=== PATIENT | male | born 1990 | race Caucasian/White ===

== ENCOUNTER 2020-11-04 09:36 | Day surgery (SDC) | payer OTHER ==
[~2020-11-04 09:36] MED LIST: DEXAMETHASONE 4 MG/ML VIAL ONE; KETOROLAC 30 MG/ML VIAL ONE; LIDOCAINE-MPF 2% 5 ML VIAL ONE; ONDANSETRON 4 MG/2 ML VIAL ONE; PROPOFOL 200 MG/20 ML VIAL IVP ONE; ROCURONIUM 50 MG/5 ML VIAL ONE; SEVOFLURANE 250 ML LIQUID INH ONE
[2020-11-04] MEDS ORDERED: LACTATED RINGERS 1,000 ML IV ONE ×2 (09:40→17:09)
[2020-11-04] MEDS ORDERED: cefTRIAXone 2 GM VIAL ONE (09:45)
[2020-11-04] MEDS ORDERED: ONDANSETRON 4 MG/2 ML VIAL IVP PRN ×2 (09:54→17:18)
[2020-11-04] MEDS ORDERED: METOCLOPRAMIDE 10 MG/2 ML VIAL IVP PRN (09:54)
[2020-11-04] MEDS ORDERED: NALOXONE 0.4 MG/ML VIAL IVP PRN (09:54)
[2020-11-04] MEDS ORDERED: fentaNYL 100 MCG/2 ML VIAL IVP PRN (09:54)
[2020-11-04] MEDS ORDERED: ePHEDrine 50 MG/ML VIAL IVP PRN (09:54)
[2020-11-04] MEDS ORDERED: MORPHINE 2 MG/ML CARPUJECT IVP PRN (09:54)
[2020-11-04] MEDS ORDERED: HYDROmorphone 0.5 MG/0.5 ML SYRINGE IVP PRN (09:54)
[2020-11-04] MEDS ORDERED: ATROPINE ABBOJECT 1 MG/10 ML SYRINGE IVP PRN (09:54)
[2020-11-04] MEDS ORDERED: LACTATED RINGERS 1,000 ML IV SCH (10:00)
--- NOTE | 2020-11-04 10:03 | ANESTHESIA ---
Pre-Anesthesia VS, & Labs - Diagnosis R labrum tear - Procedure R shoulder arthroscopy Vital Signs: Temp Pulse Resp BP Pulse Ox 38.0 C H 91 16 140/89 H 100 11/04/20 09:45 11/04/20 09:45 11/04/20 09:45 11/04/20 09:45 11/04/20 09:45 Height: 6 ft 4 in Weight (kg): 113.4 kg Body Mass Index: 30.4 BMI Classification: Obese - NPO >8 hours, Other Last Fluid Intake: 4oz black coffee 0630 Last Food Intake: >8hrs Home Medications and Allergies Home Medications: Ambulatory Orders No Known Home Medications 11/04/20 Active Medications Atropine Sulfate (Atropine Abboject 1 Mg/10 Ml Syringe) 0.5 mg IVP Q5M PRN PRN Reason: Bradycardia Stop: 11/05/20 09:54 Ephedrine Sulfate (Ephedrine 50 Mg/Ml Vial) 10 mg IVP Q5M PRN PRN Reason: HYPOTENSION Stop: 11/05/20 09:54 Fentanyl (Fentanyl 100 Mcg/2 Ml Vial) 25 - 50 mcg IVP Q5M PRN PRN Reason: BREAKTHROUGH PAIN (2nd Choice) Stop: 11/05/20 09:54 Hydromorphone HCl (Hydromorphone 0.5 Mg/0.5 Ml Syringe) 0.2 - 0.6 mg IVP Q5M PRN PRN Reason: PAIN (First Choice) Stop: 11/05/20 09:54 Lactated Ringer's (Lr) 1,000 mls @ 100 mls/hr IV .Q10H ALYCIA Stop: 11/04/20 19:59 Metoclopramide HCl (Metoclopramide 10 Mg/2 Ml Vial) 10 mg IVP Q6HR PRN PRN Reason: N/V not relieved by Zofran Morphine Sulfate (Morphine 2 Mg/Ml Carpuject) 2 - 4 mg IVP Q5M PRN PRN Reason: PAIN (3rd Choice) Stop: 11/05/20 09:54 Naloxone HCl (Naloxone 0.4 Mg/Ml Vial) 0.1 mg IVP Q2M PRN PRN Reason: RESP RATE <8 Stop: 11/05/20 09:54 Ondansetron HCl (Ondansetron 4 Mg/2 Ml Vial) 4 mg IVP ONCE PRN PRN Reason: N/V (First Choice) Stop: 11/05/20 09:54 Acetaminophen [Tylenol] 650 mg PO Q6H PRN 10/27/20 Allergies/Adverse Reactions: Allergies Allergy/AdvReac Type Severity Reaction Status Date / Time No Known Drug Allergies Allergy Verified 11/04/20 10:04 Anes History & Medical History - Anesthetic History Family history of Anesthesia Complications: Denies Family history of Malignant Hyperthermia: Denies - Medical History Cardiovascular: reports: None Pulmonary: reports: None Gastrointestinal: reports: None Urinary: reports: None Musculoskeletal: reports: Other Endocrine/Autoimmune: reports: None Skin: reports: None Smoking Status: Never smoker Psychosocial: reports: No issues indicated History of Cancer?: No Exam Dental: WNL Mouth Openin Fingerbreadth Neck Mobility: Normal Mallampati classification: I Respiratory: Lungs clear Cardiovascular: Regular rate Abdomen: Normal bowel sounds Extremities: No clubbing Neurological: Normal gait Mental/Cognitive Status: Alert/Oriented X3 Cognitive Status: Within normal limits Plan Anesthesia Type: General, Interscalene Block, Other (R superficial cervical block) Regional Block: Per Surgeon's request for Post Op pain control Consent for Procedure(s) Verified and Reviewed: Yes Code Status: Attempt Resuscitation ASA classification: 1-Healthy patient Is this case an emergency?: No
[2020-11-04] MEDS ORDERED: ROPIVACAINE 0.5% PF 20 ML AMPULE ONE (10:58)
[2020-11-04] MEDS ORDERED: DEXAMETHASONE 4 MG/ML VIAL ONE ×2 (11:01→11:03)
[2020-11-04] MEDS ORDERED: EPINEPHrine 1 MG/ML AMP ONE ×2 (11:02→11:33)
[2020-11-04] MEDS ORDERED: BUPIVACAINE 0.25% PF 30 ML VIAL ONE (11:33)
[2020-11-04] MEDS ORDERED: fentaNYL 100 MCG/2 ML VIAL ONE ×2 (11:35)
[2020-11-04] MEDS ORDERED: MIDAZOLAM 2 MG/2 ML VIAL ONE (11:35)
[2020-11-04] MEDS ORDERED: EPINEPHrine 1 MG/ML AMP IR ONE (12:41)
[2020-11-04] MEDS ORDERED: BUPIVACAINE 0.25% PF 30 ML VIAL SUBQ ONE (12:42)
[2020-11-04] MEDS ORDERED: SEVOFLURANE 250 ML LIQUID INH ONE (16:47)
[2020-11-04] MEDS ORDERED: oxyCODONE 5 MG TABLET PO PRN (17:18)
--- NOTE | 2020-11-04 17:33 | OPERATIVE REPORT ---
Operative Report - Other Other Information/Narrative: Date of Surgery: 04 November 2020 Pre-Op Diagnosis: Shoulder instability with labral tear, humeral avulsion of the glenohumeral ligament, and Hill-Sachs lesion Procedure: Right shoulder arthroscopy with anterior labral repair. Open repair of the right shoulder humeral avulsion of the glenohumeral ligament. Postop Diagnosis: Same Primary Surgeon: Zhao Li Secondary Surgeon: None Complications: None EBL: 50 mL IMPLANTS: Arthrex knotless suture tack x4 for the Bankart repair Arthrex knotless corkscrew x1 for the HAGL repair Arthrex swivelock x1 for repair of the inferior subscap POSTOPERATIVE PLAN: 0-2 weeks-Sling at all times. Pendulum exercises 5 times per day. 2-6 weeks-Passive range of motion with the following limits: FF to 120, ER to neutral, abduction to 90 6-12 weeks-Active range of motion in all planes without limitation. Isometric rotator cuff strengthening is allowed 12-16 weeks-Gradually increase strengthening 16 weeks and beyond-Introduce dynamic activities EXAMINATION UNDER ANESTHESIA: ROM: Full Anterior load and shift: Unstable with click Posterior load and shift: Stable Inferior sulcus: Stable ARTHROSCOPIC FINDINGS: Rotator interval: Generally injected and inflamed from the injury Biceps tendon & SLAP: Normal Subscapularis: Normal Rotator Cuff: Normal HAGL: Anterior and inferior joint capsule was avulsed from the humerus Labrum: Anterior labrum was completely torn and medialized down the neck Glenoid Cartilage: Glad lesion was seen along the anterior Bankart region, cartilage was otherwise normal Humeral Head Cartilage: Hill-Sachs lesion was seen but otherwise humeral head was normal INDICATION FOR SURGERY: 30-year-old male who dislocated his shoulder while snowboarding 1 month ago. He started physical therapy and got an MRI. The MRI showed humeral avulsion of the glenohumeral ligaments as well as a labral tear and medialization of the capsule on the glenoid neck. He was indicated for surgery to restore his anatomy and stability. The risks, benefits, and alternatives were discussed. Risks included pain, bleeding, infection, damage to nearby structures, lack of symptom relief, implant complications, stiffness, need for further surgeries, DVT, PE, stroke, and even . He signed a writ ten consent form. PROCEDURE IN DETAIL: The patient was met in the preoperative holding on the day of the procedure. Operative extremity was signed. Consent was verified. He desired to proceed. Regional anesthesia was obtained in the preoperative area. They were brought to the operating room and surrendered to anesthesia. Once general anesthesia was obtained they were placed in the lateral decubitus position with the operative side up. An axillary roll was placed and all bony prominences were well-padded. They were then prepped and draped in the standard sterile fashion. A surgical timeout was held to confirm the patient procedure, identity, procedure, laterality, allergies, images, and antibiotics. All were in agreement we proceeded. Balanced suspension was applied and a standard diagnostic arthroscopy was performed utilizing posterior and anterior superior portal sites. The anterior superior portal site was created under direct visualization. The findings of the diagnostic arthroscopy can be found above. A mid glenoid portal was then created under direct visualization bordering the subscapularis tendon. I then used a combination of high and low angled elevators to develop the labral tear and release it from off the glenoid neck. I then used to the pineapple rasp to finalize my release and abraded the bone to a bleeding bed. A sucker shaver was placed in the interval to debride any loose tissue and further abrade the glenoid neck. Any loose cartilage was debrided at that time. I then established a percutaneous 7:00 portal utilizing the Arthrex system. I then placed an anchor at the 6:00 position. The suture was passed using an appropriate 45 degree suture lasso. The labrum was secured using knotless technique. Appropriate tension was confirmed with a probe and the excess suture was cut. Using the same technique additional anchors were placed at 5:00, 4:00, and 3:00 positions. A small labral bumper was recreated. I took care to not over tighten things as the humeral avulsion still had to be fixed. The portal sites were then closed with 3-0 Monocryl buried. I then applied sterile dressings and the drapes were taken down. We then repositioned the patient in a lazy beachchair position and all bony prominences were well padded. He was then prepped and draped in the standard sterile fashion. A surgical timeout was held again per protocol. All were in agreement and we proceeded. I extended his mid glenoid portal an additional 5 cm into the deltopectoral interval. Cephalic vein was identified and crossing branches were ligated. The self retraining retractor was placed taking care to not pull on to the neurovascular bundles medially. The bursa overlying subscapularis was excised. The inferior one third of subscapularis was identified and released from its insertion in an L shape. A Alonso was used to separate the capsule from the subscapularis tendon. The capsular avulsion was identified at the inferior neck. The repair site was prepared with a Alonso and rasp. A knotless corkscrew was placed in a safe position with an excellent trajectory. The suture was passed through the glenohumeral ligament and it was secured to the neck nicely. I then assessed inferior and superior to this and found that the single suture combined with the Bankart repair tensioned things nicely. This repair was done with the arm abducted slightly and externally rotated 30 degrees to ensure that it was not overtightened. I then irrigated the wound copiously. I repaired the subscapularis with a swivel lock as well as sutures attaching the inferior portion to the superior portion. I then closed the skin with 2-0 Vicryl and 3-0 Monocryl. Mastisol and Steri-Strips were applied. A sterile dressing and a sling was applied. He was awakened and transferred to the recovery room.
[2020-11-04 17:36] VITALS: BP 144/91
--- NOTE | 2020-11-04 17:43 | ANESTHESIA POST OP EVALUATION ---
Anesthesia Post Eval - Post Anesthesia Eval Vitals: Last Vital Signs Temp 36.8 C 11/04/20 17:35 Pulse 108 H 11/04/20 17:35 Resp 17 11/04/20 17:35 BP 144/91 H 11/04/20 17:35 Pulse Ox 97 11/04/20 17:35 CV Function Including HR & BP: positive: Stable Pain Control: positive: Satisfactory Nausea & Vomiting: positive: Negative Mental Status: positive: Baseline Respiratory Status: Airway Patent Hydration Status: Satisfactory Anesthesia Complications: positive: None
== END 2020-11-04 09:37 | disposition home or self-care (01) ==
LOC: SDS 09:36
PROVIDERS: ATTEND Orthopaedic Surgery
DX: S43.491A Other sprain of right shoulder joint, initial encounter (principal); M25.811 Other specified joint disorders, right shoulder; M25.311 Other instability, right shoulder; E66.9 Obesity, unspecified; Z68.30 Body mass index [BMI] 30.0-30.9, adult
CPT/HCPCS: 23929; 29806; C1713; J3490; J7120